=== PATIENT | female | born 1995 | race Caucasian/White ===

== ENCOUNTER 2016-12-18 01:07 | Emergency (ER) | payer OTHER ==
[~2016-12-18] VITALS: Ht 170.2 cm; Wt 78.0 kg
[~2016-12-18 01:07] MED LIST: PREN0.01 PO; Z.0.NO CURRENT MEDS
[2016-12-18 01:09] VITALS: BP 150/84; PULSE 112; RESP 20; TEMP 98.3; O2SAT 98
[2016-12-18] MEDS ORDERED: CLINDAMYCIN PHOS 300 MG/2 ML VIAL IM ONE (01:30)
[2016-12-18] MEDS ORDERED: DEXAMETHASONE SOD PHOS 4 MG/ML VIAL IM ONE (01:30)
--- NOTE | 2016-12-18 01:44 | PD ---
HPI Chief Complaint: Oral / Dental Pain or Problem Time Seen by Provider: 01:37 Travel History International Travel<30 days: No Contact w/Intl Traveler<30days: No Traveled to known affect area: No History of Present Illness HPI Patient comes in complaining of dental pain and feeling as her face is swollen. Patient states started off approximately 4 days ago with left ear pain. Patient states she seen at different ER approximately 2 hours prior to arrival was diagnosed with a dental infection given a Tylenol 3 and a prescription for antibiotics that she has not filled yet and came here for second opinion. Patient states she woke with her facial pain and swelling this morning. Patient denies anything making it better or worse. Patient denies doing anything for this besides going to the ER. Denies any , fevers, or difficulty swallowing. PFSH Past Medical History Diminished Hearing: No Immunizations Current: Yes : 0 Social History Alcohol Use: No Tobacco Use: No Substance Use: No Allergies-Medications (Allergen,Severity, Reaction): Coded Allergies: No Known Allergies (Verified , 12/18/16) Reported Meds & Prescriptions Reported Meds & Active Scripts Active Reported Adderall (Amphetamine-Dextroamphetamine) 30 Mg Tab 30 Mg PO BID Avoid late evening doses. Space doses at least 4 to 6 hours if more than once/day dosing. Review of Systems Except as stated in HPI: all other systems reviewed are Neg Physical Exam Narrative GENERAL: Well-developed, overly nourished, and non-ill appearing. Crying on exam. SKIN: Warm and dry. HEAD: Atraumatic. Normocephalic. EYES: Pupils equal and round. EOMI. No scleral icterus. No injection or drainage. ENT: No nasal bleeding or discharge. Mucous membranes pink and moist. Poor dentition with no visible or palpable abscess noted. Floor the mouth, submandibular, and submental are all soft to palpation. Patient swallowing own saliva. Speaking full sentences without difficulty. NECK: Trachea midline. Supple. No nuclear rigidity. No cervical lymphadenopathy. RESPIRATORY: No accessory muscle use. No respiratory distress. MUSCULOSKELETAL: No obvious deformities. No clubbing. No cyanosis. No edema. Full range of motion. NEUROLOGICAL: Awake and alert. No obvious cranial nerve deficits. Motor grossly within normal limits. Normal speech. PSYCHIATRIC: Appropriate mood and affect; insight and judgment normal. Data Data Last Documented VS Vital Signs Date Time Temp Pulse Resp B/P Pulse Ox O2 Delivery O2 Flow Rate FiO2 12/18/16 01:09 98.3 112 20 150/84 98 Orders Dexamethasone Inj (Decadron Inj) (12/18/16 01:30) Clindamycin Inj (Cleocin Inj) (12/18/16 01:30) MDM Medical Decision Making Medical Screen Exam Complete: Yes Emergency Medical Condition: Yes Differential Diagnosis Dental abscess, dental infection, Ken's, dentalgia, other Narrative Course The patient presented with dental pain. There is no fever. There is no significant facial swelling or evidence of cellulitis. There is poor dentition but no evidence of drainable abscess at this time. There is no evidence of significant deep or invading abscess at this time. The patient was instructed to fill the antibiotics as prescribed by ER she was at prior to coming here. The patient was instructed to follow up with a dentist. Warnings were discussed with the patient regarding worsening of infection. The patient is to return if pain worsens, develops progressive swelling or facial redness or fever. The patient agrees with plan. Patient in no obvious distress upon re-evaluation. Any questions/concerns in reference to patient diagnosis/condition discussed and clarified prior to patient's discharge. Reinforced sheer importance of close follow up with patient 's primary physician or primary care clinic. Instructed patient to return to ED immediately, if symptoms return/worsen. Pt showed understanding of above instructions. Further instructions and recommendations were detailed in discharge paperwork. Pt ambulated without difficulty out of ED at discharge. Diagnosis Primary Impression: Dentalgia Patient Instructions: Dental Abscess (GEN), Dental Caries (ED), General Instructions Additional Instructions: Follow-up with your primary care physician and dentist as soon as possible. Rinse mouth with warm salt water gargles. Take all medication as previously prescribed. Return to the emergency department if symptoms get worse. Disposition: 01 DISCHARGE HOME Condition: Stable Elijah Trejo Dec 18, 2016 01:43
[2016-12-18] MEDS ORDERED: ADDE30TA PO (02:00)
== END 2016-12-18 03:05 | disposition home or self-care (01) ==
LOC: NEPB 01:07
DX: K08.89 Other specified disorders of teeth and supporting structures (principal); H92.02 Otalgia, left ear
CPT/HCPCS: 96372; 99282; J1100

== ENCOUNTER 2018-03-11 02:13 | Emergency (ER) | payer OTHER ==
[~2018-03-11] VITALS: Ht 157.5 cm; Wt 65.0 kg
[~2018-03-11 02:13] MED LIST changes: +ADDE30TA PO; -PREN0.01 PO; -Z.0.NO CURRENT MEDS
[2018-03-11 02:18] VITALS: BP 126/58; PULSE 130; RESP 18; TEMP 98.7; O2SAT 98
[2018-03-11 02:36] VITALS: BP 127/70; PULSE 122; RESP 19; O2SAT 98
--- NOTE | 2018-03-11 02:52 | PD ---
HPI Chief Complaint: Cold / Flu Symptoms Time Seen by Provider: 02:49 Travel History International Travel<30 days: No Contact w/Intl Traveler<30days: No Traveled to known affect area: No History of Present Illness HPI 23-year-old female patient with history of asthma, presents to the ER today for 2 days history of cough, fevers of 101, body aches, shortness of breath, wheezing, feels like she is having an asthma attack. She feels like her chest is tight. She states that her friend had pneumonia recently as well. She denies any vomiting, abdominal pains, or other symptoms. Modifying Factors: None Associated Signs & Symptoms: Cough, wheezing, shortness of breath, chest tightness, fevers Risk Factors: Asthma history, sick contact PFS Past Medical History Asthma: Yes Diminished Hearing: No Immunizations Current: Yes Tetanus Vaccination: Unknown Influenza Vaccination: No ?: Not LMP: 02/24/2018 : 0 Past Surgical History Surgical History: No Previous Surgery Social History Alcohol Use: No Tobacco Use: Yes Substance Use: No Allergies-Medications (Allergen,Severity, Reaction): Coded Allergies: No Known Allergies (Verified Adverse Reaction, Unknown, 03/11/18) Reported Meds & Prescriptions Reported Meds & Active Scripts Active Reported Adderall (Amphetamine-Dextroamphetamine) 30 Mg Tab 30 Mg PO BID Avoid late evening doses. Space doses at least 4 to 6 hours if more than once/day dosing. Review of Systems Except as stated in HPI: all other systems reviewed are Neg Physical Exam Narrative GENERAL: Well-developed young female patient currently in mild distress. Awake and oriented 3. SKIN: Focused skin assessment warm/dry. HEAD: Atraumatic. Normocephalic. EYES: Pupils equal and round. No scleral icterus. No injection or drainage. ENT: No nasal bleeding or discharge. Mucous membranes pink and moist. Mild pharyngeal erythema. NECK: Trachea midline. No JVD. Supple. CARDIOVASCULAR: Regular rate and rhythm. No murmur appreciated. RESPIRATORY: No accessory muscle use. Mild wheezing throughout bilaterally. Breath sounds equal bilaterally. GASTROINTESTINAL: Abdomen soft, non-tender, nondistended. Hepatic and splenic margins not palpable. MUSCULOSKELETAL: No obvious deformities. No clubbing. No cyanosis. No edema. NEUROLOGICAL: Awake and alert. No obvious cranial nerve deficits. Motor grossly within normal limits. Normal speech. PSYCHIATRIC: Appropriate mood and affect; insight and judgment normal. Data Data Last Documented VS Vital Signs Date Time Temp Pulse Resp B/P (MAP) Pulse Ox O2 Delivery O2 Flow Rate FiO2 03/11/18 02:36 122 19 127/70 (89) 98 Room Air 03/11/18 02:18 98.7 Orders Orders Chest, Single Ap (03/11/18 02:49) Ecg Monitoring (03/11/18 02:49) Iv Access Insert/Monitor (03/11/18 02:49) Oximetry (03/11/18 02:49) Oxygen Administration (03/11/18 02:49) Methylprednisolone So Succ Inj (Solumedr (03/11/18 03:00) Albuterol Neb (Albuterol Neb) (03/11/18 03:00) Sodium Chloride 0.9% Flush (Ns Flush) (03/11/18 03:00) Influenzae A/B Antigen (03/11/18 02:52) Ed Discharge Order (03/11/18 04:05) MDM Medical Decision Making Medical Screen Exam Complete: Yes Emergency Medical Condition: Yes Medical Record Reviewed: Yes Differential Diagnosis URI versus bronchitis versus pneumonia versus asthma attack Narrative Course Influenza testing is negative. Chest x-ray was unremarkable for any signs of acute pulmonary processes. She was treated with steroids and nebulizers in the ER. On reevaluation at 4 AM, she is feeling improved, wheezing has subsided. At this point, my plan would be to release her with further treatment for her asthma attack. Return for any worsening in symptoms as needed. The plan has been discussed with her and she states understanding. Diagnosis Primary Impression: Asthma exacerbation Med/Other Pt SpecificInfo: Prescription(s) given Scripts Albuterol 6.7 GM Inh (Proventil Hfa 6.7 GM Inh) 90 Mcg/Act Aer 2 PUFF INH Q4-6H Y for SHORTNESS OF BREATH, #1 INHALER 0 Refills Prov: Gregorio Murphy MD 03/11/18 Prednisone (Prednisone) 50 Mg Tab 50 MG PO DAILY for 5 Days, #5 TAB 0 Refills Prov: Gregorio Murphy MD 03/11/18 Disposition: 01 DISCHARGE HOME Condition: Stable Gregorio Murphy MD March 11, 2018 02:52
[2018-03-11] MEDS ORDERED: methylPREDNISolone SOD SUCC 125 MG/2 ML VIAL IV PUSH ONE (03:00)
[2018-03-11] MEDS ORDERED: SODIUM CHLORIDE 0.9% FLUSH 10 ML FLUSH IVF PRN (03:00)
[2018-03-11] MEDS: RESP: ALBUTEROL 2.5 MG/3 ML NEB (SCH) INH (03:01)
--- NOTE | 2018-03-11 04:01 | RADRPT ---
EXAM DATE/TIME: 03/11/2018 03:15 [facility] COMPARISON: No previous studies available for comparison. INDICATIONS : Asthma attack- Flu like symptoms. Chest pain and shortness of breath. MEDICAL HISTORY : Asthma. SURGICAL HISTORY : None. ENCOUNTER: Initial ACUITY: 1 day PAIN SCORE: 6/10 LOCATION: Bilateral chest FINDINGS: 2 AP abrupt portable views of the chest demonstrates the lungs to be symmetrically aerated without ev idence of mass, infiltrate or effusion. The cardiomediastinal contours are unremarkable. Osseous st ructures are intact. CONCLUSION: No acute disease. Joon Leavitt MD on March 11, 2018 at 3:59 Board Certified Radiologist. This report was verified electronically.
[2018-03-11] MEDS ORDERED: ALBU6.7H INH (04:07)
[2018-03-11] MEDS ORDERED: PRED50 PO (04:07)
== END 2018-03-11 04:36 | disposition home or self-care (01) ==
LOC: NEPC 02:13
DX: J45.901 Unspecified asthma with (acute) exacerbation (principal); Z72.0 Tobacco use; Z79.899 Other long term (current) drug therapy
CPT/HCPCS: 71045; 87804; 94640; 94664; 96374; 99284; J2930; J7613

== ENCOUNTER 2018-03-16 20:45 | Emergency (ER) | payer OTHER ==
[~2018-03-16] VITALS: Ht 157.5 cm; Wt 66.0 kg
[~2018-03-16 20:45] MED LIST changes: +ALBU6.7H INH; +PRED50 PO
[2018-03-16 21:23] VITALS: BP_SYST 131; BP_SYST 237; BP_DIAS 153; BP_DIAS 62; PULSE 89; RESP 18; TEMP 97.5; O2SAT 100
--- NOTE | 2018-03-16 22:26 | RADRPT ---
EXAM DATE/TIME: 03/16/2018 21:54 [facility] COMPARISON: No previous studies available for comparison. INDICATIONS : Bone infarction. Pain and swelling of distal 1st digit/terminal tuft to 1st metatarsal. No known inju ry. MEDICAL HISTORY : Asthma. SURGICAL HISTORY : None. ENCOUNTER: Initial ACUITY: 4 - 6 days PAIN SCORE: 9/10 LOCATION: Right Hand. FINDINGS: Three view examination of the right hand demonstrates no soft tissue swelling, dislocation, or acute fracture. The carpal bones appear intact. The interphalangeal and metacarpophalangeal joints are i ntact. Bony mineralization is normal. There is volar angulation of the distal fifth metacarpal like ly from prior healed fracture. CONCLUSION: No acute disease. Timothy Dodge MD on March 16, 2018 at 22:24 Board Certified Radiologist. This report was verified electronically.
[2018-03-17] MEDS ORDERED: IBUP1TAB7 PO (00:13)
[2018-03-17] MEDS ORDERED: CEPH-460 PO (00:13)
--- NOTE | 2018-03-17 00:13 | PD ---
HPI Chief Complaint: Injury Time Seen by Provider: 23:50 Travel History International Travel<30 days: No Contact w/Intl Traveler<30days: No Traveled to known affect area: No History of Present Illness HPI Patient is a 23-year-old female presenting to the emergency department for evaluation of right thumb pain and swelling. Patient stated started swelling 5 days ago. She reports her pain is a 10 out of 10, she denies any retained foreign body. She denies any fever, chills, nausea or vomiting. Patient states the pain is throbbing, there are no alleviating factors. Pain is exacerbated with touch or movement. Symptom onset was gradual, symptoms are moderate in nature. PFSH Past Medical History Asthma: Yes Immunizations Current: Yes ?: Not LMP: 03/03/18 : 0 Past Surgical History Surgical History: No Previous Surgery Social History Alcohol Use: No Tobacco Use: Yes Substance Use: No Allergies-Medications (Allergen,Severity, Reaction): Coded Allergies: No Known Allergies (Verified Adverse Reaction, Unknown, 03/11/18) Reported Meds & Prescriptions Reported Meds & Active Scripts Active Keflex (Cephalexin) 500 Mg Cap 500 Mg PO Q12H 5 Days Ibuprofen 800 Mg Tab 800 Mg PO Q6HR PRN Proventil Hfa 6.7 GM Inh (Albuterol Sulfate) 90 Mcg/Act Aer 2 Puff INH Q4-6H PRN Prednisone 50 Mg Tab 50 Mg PO DAILY 5 Days Reported Adderall (Amphetamine-Dextroamphetamine) 30 Mg Tab 30 Mg PO BID Avoid late evening doses. Space doses at least 4 to 6 hours if more than once/day dosing. Review of Systems Except as stated in HPI: all other systems reviewed are Neg Musculoskeletal: Positive: Edema, Pain Physical Exam Narrative GENERAL: Well-developed, well-nourished, alert female. Presenting in no acute distress. SKIN: Warm and dry. Right first finger with a paronychia at the tip of the nail bed. Less than 3 second capillary refill. HEAD: Normocephalic. EYES: No scleral icterus. No injection or drainage. NECK: Supple, trachea midline. No JVD or lymphadenopathy. CARDIOVASCULAR: Regular rate and rhythm without murmurs, gallops, or rubs. RESPIRATORY: Breath sounds equal bilaterally. No accessory muscle use. GASTROINTESTINAL: Abdomen soft, non-tender, nondistended. MUSCULOSKELETAL: No cyanosis, or edema. BACK: Nontender without obvious deformity. No CVA tenderness. Data Data Last Documented VS Vital Signs Date Time Temp Pulse Resp B/P (MAP) Pulse Ox O2 Delivery O2 Flow Rate FiO2 03/16/18 21:23 97.5 89 18 237/153 (181) 100 131/62 (85) Orders Orders Hand, Complete ([id number]) (03/16/18 ) Ed Discharge Order (03/17/18 00:13) Ibuprofen (Motrin) (03/17/18 00:15) MDM Medical Decision Making Medical Screen Exam Complete: Yes Emergency Medical Condition: Yes Interpretation(s) Vital Signs Date Time Temp Pulse Resp B/P (MAP) Pulse Ox O2 Delivery O2 Flow Rate FiO2 03/16/18 21:23 97.5 89 18 237/153 (181) 100 131/62 (85) Differential Diagnosis Abscess versus cellulitis versus paronychia versus other Narrative Course Patient is a 23-year-old female presenting for evaluation of edema to her right first finger tip. Exam is consistent with paronychia. Please see procedure report for I&D. Patient tolerated well, she will be prescribed Keflex and ibuprofen. She is encouraged to apply warm compress to the affected area, keep elevated to help with edema. She was encouraged to keep the incision covered. She is advised to follow-up with her primary doctor or return to emergency department for any new or worsening symptoms. Patient verbalized understanding of instructions. Patient stable for discharge. Diagnosis Primary Impression: Paronychia Referrals: [facility] call for appointment Patient Instructions: General Instructions, Paronychia (ED) Additional Instructions: Follow up with your primary doctor or at the [facility] Soak finger in warm water for comfort Take ibuprofen as needed and as directed for pain Return to the emergency department for any new or worsening symptoms Med/Other Pt SpecificInfo: Prescription(s) given Scripts Cephalexin (Keflex) 500 Mg Cap 500 MG PO Q12H for Infection for 5 Days, #10 CAP 0 Refills Prov: Helene Wallace 03/17/18 Ibuprofen (Ibuprofen) 800 Mg Tab 800 MG PO Q6HR Y for PAIN, #40 TAB 0 Refills Prov: Helene Wallace 03/17/18 Disposition: 01 DISCHARGE HOME Condition: Stable Helene Wallace March 17, 2018 00:13
[2018-03-17] MEDS ORDERED: IBUPROFEN 800 MG TAB PO ONE (00:15)
== END 2018-03-17 01:06 | disposition home or self-care (01) ==
LOC: NED 20:45
DX: L03.011 Cellulitis of right finger (principal); J45.909 Unspecified asthma, uncomplicated; Z72.0 Tobacco use
CPT/HCPCS: 10060; 73130